=== PATIENT | male | born 1950 | race Caucasian/White ===

== ENCOUNTER 2018-03-16 13:00 | Outpatient (RCR) | payer OTHER ==
[~2018-03-16 13:00] MED LIST: DARBEPOETIN ESRD 25 MCG/ML IVP PRN; DEXTROSE 50% 50 ML SYR IVP PRN; DIALYSIS ACETAMINOPHEN 325 MG PO PRN; LIDOCAINE/SOD BICARB 8.4% SYR ID PRN; LOPERAMIDE HCL 2 MG CAP PO PRN; PROMETHAZINE HCL 25 MG TAB PO PRN; diphenhydr DIALYSIS 50 MG/ML IVP PRN
[2018-03-16] MEDS: HEPARIN SOD (PORCINE) UNIT/HR IVP PRN (13:40)
[2018-03-16] MEDS: HEPARIN SOD (PORCINE) LOAD IVP PRN (13:40)
[2018-03-19] MEDS: HEPARIN SOD (PORCINE) UNIT/HR IVP PRN (11:37)
[2018-03-19] MEDS: HEPARIN SOD (PORCINE) LOAD IVP PRN (11:38)
[2018-03-19 12:04] LABS: PLATELET COUNT, AUTOMATED 393 K/uL (150-450)
[2018-03-21] MEDS: HEPARIN SOD (PORCINE) LOAD IVP PRN (11:40)
[2018-03-21] MEDS: HEPARIN SOD (PORCINE) UNIT/HR IVP PRN (11:40)
[2018-03-21] MEDS ORDERED: INFLUENZA VIRUS VAC 0.5ML SYR IM ONLY ONE (13:45)
[2018-03-23] MEDS: HEPARIN SOD (PORCINE) LOAD IVP PRN (11:51)
[2018-03-23] MEDS: HEPARIN SOD (PORCINE) UNIT/HR IVP PRN (11:51)
[2018-03-23] MEDS: DARBEPOETIN ESRD 25 MCG/ML IVP PRN (12:49)
[2018-03-23] MEDS ORDERED: INFLUENZA VIRUS VAC 0.5ML SYR IM ONLY ONE (14:00)
[2018-03-23] MEDS ORDERED: BETA1TAB PO (14:05)
[2018-03-23] MEDS ORDERED: DILT180C2 PO (14:05)
[2018-03-23] MEDS ORDERED: FAMO-67 PO (14:05)
[2018-03-23] MEDS ORDERED: PARO-243 PO (14:05)
[2018-03-23] MEDS ORDERED: CAL25 FT (14:05)
[2018-03-23] MEDS ORDERED: ASPI81TA86 PO (14:05)
[2018-03-23] MEDS ORDERED: HYDR-2966 PO (14:05)
[2018-03-23] MEDS ORDERED: WARF2TAB73 PO (14:05)
[2018-03-23] MEDS ORDERED: ALB6.7R INH (14:05)
[2018-03-23] MEDS ORDERED: CHOL10005 PO (14:05)
[2018-03-23] MEDS ORDERED: SEVE800T16 PO (14:05)
[2018-03-23] MEDS ORDERED: METO-257 PO (14:05)
[2018-03-26] MEDS: HEPARIN SOD (PORCINE) LOAD IVP PRN (11:39)
[2018-03-26] MEDS: HEPARIN SOD (PORCINE) UNIT/HR IVP PRN (11:41)
[2018-03-28] MEDS: HEPARIN SOD (PORCINE) LOAD IVP PRN (11:21)
[2018-03-28] MEDS: HEPARIN SOD (PORCINE) UNIT/HR IVP PRN (11:22)
[2018-03-30] MEDS: HEPARIN SOD (PORCINE) LOAD IVP PRN (11:01)
[2018-03-30] MEDS: HEPARIN SOD (PORCINE) UNIT/HR IVP PRN (11:01)
[2018-03-30] MEDS: DARBEPOETIN ESRD 25 MCG/ML IVP PRN (12:06)
[2018-04-02] MEDS: HEPARIN SOD (PORCINE) UNIT/HR IVP PRN (11:00)
[2018-04-02] MEDS: HEPARIN SOD (PORCINE) LOAD IVP PRN (11:00)
[2018-04-04] MEDS: HEPARIN SOD (PORCINE) UNIT/HR IVP PRN (11:34)
[2018-04-04] MEDS: HEPARIN SOD (PORCINE) LOAD IVP PRN (11:35)
[2018-04-06] MEDS: HEPARIN SOD (PORCINE) UNIT/HR IVP PRN (11:33)
[2018-04-06] MEDS: HEPARIN SOD (PORCINE) LOAD IVP PRN (11:33)
[2018-04-06] MEDS ORDERED: DARBEPOETIN ESRD 25 MCG/ML IVP PRN (12:45)
[2018-04-09] MEDS: HEPARIN SOD (PORCINE) LOAD IVP PRN (11:41)
[2018-04-09] MEDS: HEPARIN SOD (PORCINE) UNIT/HR IVP PRN (11:41)
[2018-04-11] MEDS: HEPARIN SOD (PORCINE) LOAD IVP PRN (11:52)
[2018-04-11] MEDS: HEPARIN SOD (PORCINE) UNIT/HR IVP PRN (11:52)
[2018-04-13] MEDS: HEPARIN SOD (PORCINE) UNIT/HR IVP PRN (11:50)
[2018-04-13] MEDS: HEPARIN SOD (PORCINE) LOAD IVP PRN (11:50)
[2018-04-16] MEDS: HEPARIN SOD (PORCINE) LOAD IVP PRN (11:40)
[2018-04-16] MEDS: HEPARIN SOD (PORCINE) UNIT/HR IVP PRN (11:40)
[2018-04-18] MEDS: HEPARIN SOD (PORCINE) LOAD IVP PRN (11:36)
[2018-04-18] MEDS: HEPARIN SOD (PORCINE) UNIT/HR IVP PRN (11:36)
[2018-04-18 12:15] LABS: PLATELET COUNT, AUTOMATED 290 K/uL (150-450)
[2018-04-20] MEDS: HEPARIN SOD (PORCINE) UNIT/HR IVP PRN (11:43)
[2018-04-20] MEDS: HEPARIN SOD (PORCINE) LOAD IVP PRN (11:43)
[2018-04-23] MEDS: HEPARIN SOD (PORCINE) LOAD IVP PRN (11:47)
[2018-04-23] MEDS: HEPARIN SOD (PORCINE) UNIT/HR IVP PRN (11:47)
[2018-04-25] MEDS: HEPARIN SOD (PORCINE) LOAD IVP PRN (11:51)
[2018-04-25] MEDS: HEPARIN SOD (PORCINE) UNIT/HR IVP PRN (11:51)
== END 2018-05-04 12:30 | disposition home or self-care (01) ==
LOC: DIAL 13:00
PROVIDERS: ATTEND Internal Medicine Nephrology
DX: I12.0 Hypertensive chronic kidney disease with stage 5 chronic kidney disease or end stage renal disease (principal); N18.6 End stage renal disease; N17.9 Acute kidney failure, unspecified; M31.31 Wegener's granulomatosis with renal involvement; I48.91 Unspecified atrial fibrillation; Z99.2 Dependence on renal dialysis; Z79.51 Long term (current) use of inhaled steroids; Z87.891 Personal history of nicotine dependence; Z95.1 Presence of aortocoronary bypass graft; I25.2 Old myocardial infarction; E55.9 Vitamin D deficiency, unspecified; E66.9 Obesity, unspecified; J44.9 Chronic obstructive pulmonary disease, unspecified; E87.6 Hypokalemia; E78.2 Mixed hyperlipidemia; Z79.82 Long term (current) use of aspirin; D63.1 Anemia in chronic kidney disease; E44.0 Moderate protein-calorie malnutrition; N25.81 Secondary hyperparathyroidism of renal origin; J81.0 Acute pulmonary edema; R54 Age-related physical debility
CPT/HCPCS: 82040; 82108; 82247; 82310; 82374; 82465; 82565; 82570; 82728; 82947; 83540; 83550; 83970; 84075; 84100; 84132; 84295; 84443; 84460; 84478; 84520; 84540; 85018; 85025; 87340; 90999; A4657; J0882; 82435

== ENCOUNTER → 2018-05-23 | Outpatient (CLI) | payer OTHER ==
[~2018-05-23] MED LIST changes: +ALB6.7R INH; +ASPI81TA86 PO; +BETA1TAB PO; +CAL25 FT; +CHOL10005 PO; -DARBEPOETIN ESRD 25 MCG/ML IVP PRN; -DEXTROSE 50% 50 ML SYR IVP PRN; -DIALYSIS ACETAMINOPHEN 325 MG PO PRN; +DILT180C2 PO; +FAMO-67 PO; +HYDR-2966 PO; -LIDOCAINE/SOD BICARB 8.4% SYR ID PRN; -LOPERAMIDE HCL 2 MG CAP PO PRN; +METO-257 PO; +PARO-243 PO; -PROMETHAZINE HCL 25 MG TAB PO PRN; +SEVE800T16 PO; +WARF2TAB73 PO; -diphenhydr DIALYSIS 50 MG/ML IVP PRN
[2018-05-23 14:12] LABS: INR 1.11
== END ==
LOC: LAB 10:03
PROVIDERS: ATTEND Internal Medicine Nephrology
DX: N17.9 Acute kidney failure, unspecified (principal); N18.3 Chronic kidney disease, stage 3 (moderate)
CPT/HCPCS: 36415; 82040; 82247; 82310; 82374; 82435; 82565; 82947; 84075; 84100; 84132; 84155; 84295; 84450; 84460; 84520; 85027; 85610